=== PATIENT | female | born 1985 | race Caucasian/White ===

== ENCOUNTER 2016-12-25 22:18 | Emergency (ER) | payer OTHER ==
[~2016-12-25] VITALS: Ht 170.2 cm; Wt 63.6 kg
[2016-12-25 22:29] VITALS: BP 117/71; PULSE 107; RESP 14; O2SAT 97
--- NOTE | 2016-12-25 22:49 | ED.REPORT ---
HPI-Abd Pain F Under 39 Date of Service Dec 25, 2016 ED Provider: Dr. Raz Clark MD A 31 year old female with no pertinent medical history presents to the ED with N /V/D that initially began 4 days ago. She also endorses subjective fever, mild non-productive cough, abdominal discomfort and dark stools. The patient admits to drinking a whole bottle of Peptol Bismol prior to arrival in the ED. She also reportedly smoked THC to help relieve her discomfort. She denies any hematochezia, hematemesis, or chance of . Patient has no recent sick contacts. Nursing Notes Stated Complaint: DIARRHEA,VOMITING Chief Complaint: Female Abdominal Pain Nursing Notes Reviewed: Yes Allergies: Coded Allergies: Penicillins (Verified Allergy, Intermediate, RASH, 12/25/16) No Active Prescriptions or Reported Meds General Time Seen by MD: 22:48 Chief Complaint Vomiting moderate Hx Obtained From: Patient Arrived By: Walk-in Sudden in Onset?: No Onset Occurred: 4 days ago Symptom Duration: Since onset Progression since Onset: Constant Location: : Diffuse Quality: Aching Radiation: : Does not radiate Severity: Current: Mild Severity: Maximum: Mild Associated with: Reports: Diarrhea, Fever, Melena, Nausea, Vomiting, Denies: Hematemesis, Hematochezia Pertinent Negative: Pt denies other symptoms Status: Negative - ED urine HCG Recent Healthcare: No recent doctor visit, No recent hospitalization Past Medical History Past Medical History None reported. Past Surgical History None reported. Smoking History Current Every Day Smoker Social History Alcohol Use: Denies alcohol use Drug Use: Meth, THC Other Social History: Local resident Ambulatory Status Independent Review of Systems + dark stool Constitutional: Reports: Fever (Subjective) GI: Reports: Abdominal pain, Diarrhea, Nausea, Vomiting, Denies: Hematemesis, Hematochezia Female: Denies: Complete sys rev & neg: except as marked. Physical Exam Initial Vital Signs Vital Signs (First) Date Time Temp Pulse Resp B/P Pulse Ox O2 Delivery O2 Flow Rate FiO2 12/25/16 22:29 37.0 107 14 117/71 97 Room Air Initial VS: Reviewed Head / Eyes: Atraumatic, Normocephalic, PERRL Neck: Supple, Non-tender, Full range of motion Extremities: Vascular intact, Neuro intact, No swelling, No tenderness Skin: Warm, Dry, No cyanosis Neurologic: Alert, Oriented, Nonfocal Psychiatric: Mood/affect normal, Behavior normal, Normal thought content General/Constitutional: Awake, Alert, No acute distress, Well appearing, Well developed Respiratory / Chest: Atraumatic, Breath sounds NL, Breath sounds = bilat, No respiratory distress Cardiovascular: Regular rhythm, Heart sounds NL Heart Rate / Rhythm: Positive: Tachycardia Abdomen: Atraumatic, Soft, Non-tender, No guarding, No rebound, No distention Back: Atraumatic, Inspection NL ENT: Atraumatic, Airway patent Mouth: Positive: Mucous membranes dry Interpretation & Diagnostics Lab Results Interpretation Result Diagram: 12/25/16 2300 12/25/16 2300 Test 12/25/16 23:00 12/25/16 23:07 White Blood Count 13.9th/mm3 (3.8-10.1) Red Blood Count 4.87mil/mm3 (3.90-5.20) Hemoglobin 14.6g/dL (12.0-15.6) Hematocrit 42.6% (35.0-46.0) Mean Corpuscular Volume 87.5fL (81-100) Mean Corpuscular Hemoglobin 30.0pg (27.0-35.0) Mean Corpuscular Hemoglobin Concent 34.3% (32.0-37.0) Red Cell Distribution Width 13.3% (12.3-15.4) Platelet Count 272bil/L (150-400) Neutrophils (%) (Auto) 89.2% (40-74) Lymphocytes (%) (Auto) 3.8% (14-46) Monocytes (%) (Auto) 5.8% (4-12) Eosinophils (%) (Auto) 0.9% (0-5) Basophils (%) (Auto) 0.1% (0-3) Sodium Level 140mEq/L (134-144) Potassium Level 3.9mEq/L (3.5-5.2) Chloride Level 101mEq/L (97-108) Carbon Dioxide Level 24mmol/L (18-29) Blood Urea Nitrogen 15mg/dL (6-20) Creatinine 0.66mg/dL (0.57-1.00) Estimat Glomerular Filtration Rate 149mL/min (>59) Glucose Level 118mg/dL (60-99) Calcium Level 9.2mg/dL (8.5-10.1) Magnesium Level 2.1mg/dL (1.6-2.6) Total Bilirubin 0.9mg/dL (0.0-1.2) Aspartate Amino Transf (AST/SGOT) 32U/L (0-50) Alanine Aminotransferase (ALT/SGPT) 50U/L (0-32) Alkaline Phosphatase 71U/L (25-150) Total Protein 7.2g/dL (6.4-8.4) Albumin 4.5g/dL (3.4-5.0) Lipase 20U/L (13-60) Hold Lou Top Tube Received (Received) Salicylates Level 13.0ug/mL (30-250) Acetaminophen Level 15.0ug/mL Rx (10-25) Urine Color Yellow (YELLOW) Urine Appearance Clear (CLEAR,HAZY) Urine pH 6.5 (5.0-8.0) Urine Specific [place] 1.015 (1.003-1.035) Urine Protein Negativemg/dL (NEG,TRACE) Urine Glucose (UA) Negativemg/dL (NEGATIVE) Urine Ketones Negativemg/dL (NEGATIVE) Urine Occult Blood Negative (NEGATIVE) Urine Nitrite Negative (NEGATIVE) Urine Bilirubin Negative (NEGATIVE) Urine Urobilinogen Normalmg/dL (NORMAL) Urine Leukocyte Esterase Negative (NEGATIVE) Urine RBC 0-2/hpf (0-2) Urine WBC 0-5/hpf (0-5) Urine Epithelial Cells Moderate/hpf (NONE-MOD) Urine Crystals None seen (NONE SEEN) Urine Bacteria Few/hpf (NONE-FEW) Urine Hyaline Casts None/lpf (NONE) Urine Granular Casts None seen (NONE SEEN) Urine Waxy Casts None seen (NONE SEEN) Urine Red Blood Cell Casts None seen (NONE SEEN) Urine White Blood Cell Casts None seen (NONE SEEN) Urine Mucus Present (None Seen) Urine Trichomonas None seen (NONE SEEN) Urine Yeast None (NONE SEEN) Urinalysis Comment None Urine Culture Reflexed Not indicated Re-Eval/Medical Decision Re-Evaluation/Progress : Time of Eval: 00:35 Patient Status: Condition improved Re-Evaluation/Progress Note: Patient is rechecked. Nausea has improved following Gi cocktail. She is informed of her results. All of her questions about the intended treatment plan are addressed. The patient understands and agrees with the intended plan. Counseled Regarding: Diagnosis, Lab results, Need for follow-up, When/why to return to ED Discharge & Departure Primary Impression: Gastroenteritis Disposition: Home Discharge Condition All VS Reviewed: Yes Condition: Improved Patient Instructions: Acute Nausea and Vomiting (ED), Acute Abdominal Pain (ED) , Gastroenteritis (ED) Additional Instructions: Thank you for entrusting us with your care today. Your emergency department evaluation today including examination and lab work are reassuring that there is no dangerous cause for concern at this time and I believe your symptoms are due to gastroenteritis. Take 1-2 Zofran every 8 hours as needed for nausea. Do not use any more Peptol Bismol for your symptoms. Take 1 *[place] every 8 hours as needed for pain. * The medication you have been prescribed is a narcotic and may cause drowsiness. Don not drink, drive or use acetaminophen while on this medication. Please schedule a follow-up appointment with your primary care physician in the next week for a recheck. Please return to the emergency department for any new or worsening conditions including any worsening abdominal pain, fevers, chills, nausea, vomiting, lightheadedness or dizziness. Referrals: [facility] (PCP) [facility] Scribe Attestation Portions of this note were transcribed by Denise Moralez. I, Dr. Clark, personally performed the history, physical exam and medical decision-making; I reviewed and confirmed the accuracy of the information in the transcribed note. Signed by: Denise Moralez, 12/26/16. Raz Clark DO Dec 25, 2016 22:49 DENISE MORALEZ Dec 26, 2016 00:08
[2016-12-25] MEDS ORDERED: Ondansetron 2 mg/mL 2 mL Inj IVPUSH PRN (22:55)
[2016-12-25] MEDS ORDERED: 0.9% Sodium Chloride 1,000 ML IV SCH (22:55)
[2016-12-25 23:18] LABS: BASOPHILS % (AUTO) 0.1 % (0-3); EOSINOPHILS % (AUTO) 0.9 % (0-5); MONOCYTES % (AUTO) 5.8 % (4-12); Mean Corpuscular Volume 87.5 fL (81-100); NEUTROPHILS % (AUTO) 89.2 % (40-74); Platelet Count 272 bil/L (150-400)
[2016-12-25 23:22] LABS: APPEARANCE,URINE CLEAR (CLEAR,HAZY); COLOR,URINE YELLOW (YELLOW); OCCULT BLOOD,URINE NEGATIVE (NEGATIVE); PH,URINE 6.5 (5.0-8.0); UROBILINOGEN,URINE NORMAL (NORMAL)
[2016-12-25 23:40] LABS: Magnesium 2.1 mg/dL (1.6-2.6)
[2016-12-25] MEDS ORDERED: LidocaineVisc 2%:Antacid 1:1 10 mL Syringe PO SCH (23:50)
[2016-12-26] MEDS ORDERED: _Ondansetron ODT 4 mg Tablet PO PRN (01:10)
[2016-12-26 01:45] VITALS: BP 102/59; PULSE 86; RESP 18; O2SAT 97
== END 2016-12-26 01:42 | disposition home or self-care (01) ==
LOC: SED 22:18
DX: K52.9 Noninfective gastroenteritis and colitis, unspecified (principal); R05 Cough; F17.200 Nicotine dependence, unspecified, uncomplicated; Z88.0 Allergy status to penicillin
CPT/HCPCS: 36415; 80053; 81000; 81025; 83690; 83735; 85025; 96361; 96374; 99285; G0480; J2405; J7030